=== PATIENT | female | born 1980 | race Two or more races ===

== ENCOUNTER 2023-08-16 08:32 | Outpatient (CLI) | payer OTHER | END 2023-08-16 08:38 | disposition home or self-care (01) | LOC: NUCLEAR 08:32 | DX: C50.611 Malignant neoplasm of axillary tail of right female breast (principal) ==

== ENCOUNTER 2024-09-18 08:00 | Outpatient (CLI) | payer OTHER | END 2024-09-18 08:01 | disposition home or self-care (01) | LOC: NUCLEAR 08:00 | PROVIDERS: ATTEND Internal Medicine Hematology & Oncology | DX: C50.411 Malignant neoplasm of upper-outer quadrant of right female breast (principal) ==

== ENCOUNTER 2024-11-02 07:00 | Day surgery (SDC) | payer OTHER ==
[2024-11-01 10:20] LABS: HEMATOCRIT 35.3 % (36.0-45.00); HEMOGLOBIN 11.5 g/dL (12.0-15.00); MEAN CELL VOLUME 89.8 fL (80.00-100.00); MEAN CORPUSCULAR HEMOGLOBIN 29.4 pg (27.00-32.0); MEAN CORPUSCULAR HGB CONC 32.7 g/dl (32.0-36.0); PLATELET COUNT 181 K/uL (150-450); RED BLOOD COUNT 3.93 M/uL (4.00-6.00)
[2024-11-01 10:40] LABS: INR 1.06; PARTIAL THROMBOPLASTIN TIME 25.9 SECONDS (22.0-34.0); PROTHROMBIN TIME 11.5 SECONDS (9.0-11.5)
[2024-11-01 10:44] LABS: RED CELL DISTRIBUTION WIDTH 18.8 % (11.5-14.5)
[2024-11-01 11:18] LABS: BILIRUBIN TOTAL 0.69 mg/dL (0.3-1.2); CALCIUM 9.1 mg/dL (8.5-10.1); CREATININE SERUM 0.83 mg/dL (0.55-1.02); GFR 75.03; GLOBULINA 3.3 G/DL (2.4-3.5); POTASSIUM 4.22 mEq/L (3.5-5.1); TOTAL PROTEIN 7.3 gm/dL (6.4-8.2)
[2024-11-01 11:44] LABS: PH,URINE 7.5 (5.0-8.0); URINE APPEARANCE Clear; URINE BILIRRUBIN Negative (NEGATIVE); URINE BLOOD Negative; URINE COLOR Orange; URINE GLUCOSE Negative (NEGATIVE); URINE KETONE Trace (NEGATIVE); URINE LEUKOCYTE Trace; URINE NITRATE Negative; URINE PROTEIN Negative (NEGATIVE)
[2024-11-01 11:45] LABS: URINE BACTERIA 1768.6 uL (0.0-1933); URINE EPITHELIAL CELLS 40.3 uL (0.0-38.8); URINE RBC 15.7 uL (0.0-20.8); URINE WBC 16.9 uL (0.0-23.2)
[2024-11-01 12:10] LABS: URINE CAST 0.58 uL (0.0-1.40)
[2024-11-01 13:45] VITALS: BP 100/64
[~2024-11-02] VITALS: Ht 154.9 cm; Wt 47.2 kg
[~2024-11-02 07:00] MED LIST: IBRANCE125 M1; TAMOXIFEN CITRA20 MG PO; ZOLADEX3.6 MG
[2024-11-02] MEDS ORDERED: CLINDAMYCIN PHOSPHATE 150 MG/ML (900mg) IV SCH (14:15)
[2024-11-02] MEDS ORDERED: CEFAZOLIN SODIUM 1,000 MG VIAL IJ SCH (14:15)
[2024-11-02] MEDS ORDERED: POVIDONE-IODINE SCRUB 118 ML BOTT TOP SCH (14:15)
[2024-11-02] MEDS ORDERED: POVIDONE-IODINE 118 ML BOTT TOP SCH (14:15)
[2024-11-02] MEDS ORDERED: VANCOMYCIN HCL 1,000 MG VIAL IR SCH (14:15)
== END 2024-11-02 20:30 | disposition home or self-care (01) ==
LOC: CIR.AMB 07:00
PROVIDERS: ATTEND Surgery
DX: C50.111 Malignant neoplasm of central portion of right female breast (principal); R59.0 Localized enlarged lymph nodes; Z90.11 Acquired absence of right breast and nipple

== ENCOUNTER 2024-11-16 09:41 | Outpatient (CLI) | payer OTHER | END 2024-11-16 09:52 | disposition home or self-care (01) | LOC: SONOGRAMA 09:41 | PROVIDERS: ATTEND Plastic Surgery | DX: C50.911 Malignant neoplasm of unspecified site of right female breast (principal) ==

== ENCOUNTER 2024-12-24 12:43 | Outpatient (CLI) | payer OTHER | END 2024-12-24 12:44 | disposition home or self-care (01) | LOC: NUCLEAR 12:43 | PROVIDERS: ATTEND Internal Medicine Hematology & Oncology | DX: M81.0 Age-related osteoporosis without current pathological fracture (principal) ==

== ENCOUNTER 2025-01-16 08:00 | Outpatient (CLI) | payer OTHER ==
[2025-01-16 09:38] LABS: PH,URINE 7.5 (5.0-8.0); URINE APPEARANCE Clear; URINE BILIRRUBIN Negative (NEGATIVE); URINE BLOOD Negative; URINE COLOR Yellow; URINE GLUCOSE Negative (NEGATIVE); URINE KETONE Negative (NEGATIVE); URINE LEUKOCYTE Negative; URINE NITRATE Negative; URINE PROTEIN Negative (NEGATIVE); URINE UROBILINOGEN 0.2 E.U./dl
[2025-01-16 09:43] LABS: HEMATOCRIT 30.8 % (36.0-45.00); HEMOGLOBIN 10.4 g/dL (12.0-15.00); MEAN CELL VOLUME 78.6 fL (80.00-100.00); MEAN CORPUSCULAR HEMOGLOBIN 26.4 pg (27.00-32.0); MEAN CORPUSCULAR HGB CONC 33.6 g/dl (32.0-36.0); PLATELET COUNT 190 K/uL (150-450); RED BLOOD COUNT 3.92 M/uL (4.00-6.00); RED CELL DISTRIBUTION WIDTH 18.2 % (11.5-14.5)
[2025-01-16 09:46] LABS: URINE EPITHELIAL CELLS 55.5 uL (0.0-38.8); URINE RBC 6.1 uL (0.0-20.8); URINE WBC 8.5 uL (0.0-23.2)
[2025-01-16 09:47] LABS: URINE CAST 0.14 uL (0.0-1.40)
[2025-01-16 10:04] LABS: INR 1.05; PARTIAL THROMBOPLASTIN TIME 24.4 SECONDS (22.0-34.0); PROTHROMBIN TIME 11.4 SECONDS (9.0-11.5)
[2025-01-16 10:13] LABS: CALCIUM 9.1 mg/dL (8.5-10.1); CREATININE SERUM 0.67 mg/dL (0.55-1.02); GFR 95.61; POTASSIUM 4.05 mEq/L (3.5-5.1)
== END 2025-01-16 08:01 | disposition home or self-care (01) ==
LOC: EKG 08:00 → LAB 08:00 → ADM 15:00 → CIR.AMB 01-21 15:00 → EDSTATUS 01-21 15:00
PROVIDERS: ATTEND Plastic Surgery
DX: Z90.11 Acquired absence of right breast and nipple (principal); N65.1 Disproportion of reconstructed breast

== ENCOUNTER 2025-02-15 06:20 | Day surgery (SDC) | payer OTHER ==
[2025-02-12 13:30] LABS: PH,URINE 5.5 (5.0-8.0); URINE APPEARANCE Clear; URINE BILIRRUBIN Negative (NEGATIVE); URINE BLOOD Negative; URINE COLOR Yellow; URINE GLUCOSE Negative (NEGATIVE); URINE KETONE Negative (NEGATIVE); URINE LEUKOCYTE Negative; URINE NITRATE Negative; URINE PROTEIN Negative (NEGATIVE); URINE UROBILINOGEN 0.2 E.U./dl
[2025-02-12 13:33] LABS: URINE EPITHELIAL CELLS 6.1 uL (0.0-38.8); URINE RBC 3.9 uL (0.0-20.8); URINE WBC 7.5 uL (0.0-23.2)
[2025-02-12 13:53] LABS: CALCIUM 9.6 mg/dL (8.5-10.1); CREATININE SERUM 0.75 mg/dL (0.55-1.02); GFR 83.95; POTASSIUM 3.91 mEq/L (3.5-5.1)
[2025-02-12 14:02] LABS: INR 0.99; PARTIAL THROMBOPLASTIN TIME 24.8 SECONDS (22.0-34.0); PROTHROMBIN TIME 10.8 SECONDS (9.0-11.5)
[~2025-02-15] VITALS: Ht 154.9 cm; Wt 48.1 kg
[2025-02-15] MEDS ORDERED: CLINDAMYCIN PHOSPHATE 150 MG/ML (900mg) ONE (08:17)
[2025-02-15] MEDS ORDERED: CHLORHEXIDINE GLUCONATE 120 ML BOTTLE TOP ONE (08:19)
[2025-02-15] MEDS ORDERED: POVIDONE-IODINE 118 ML BOTT TOP ONE ×4 (08:19→09:49)
[2025-02-15] MEDS ORDERED: CEFAZOLIN SODIUM 1,000 MG VIAL ONE (08:20)
[2025-02-15] MEDS ORDERED: GENTAMICIN SULFATE 40 MG/ML VIAL ONE (08:23)
[2025-02-15] MEDS ORDERED: BUPIVACAINE HCL/MPF 0.5% 30ML VIAL ONE (08:27)
[2025-02-15] MEDS ORDERED: POVIDONE-IODINE SCRUB 118 ML BOTT TOP ONE (08:39)
[2025-02-15] MEDS ORDERED: ONDANSETRON HCL 2 MG/ML VIAL IV PRN (10:30)
[2025-02-15] MEDS ORDERED: MORPHINE SULFATE 4 MG/ML VIAL IV PRN (10:30)
[2025-02-15] MEDS ORDERED: MORPHINE SULFATE 4 MG/ML VIAL IV ONE (10:55)
== END 2025-02-15 12:25 | disposition home or self-care (01) ==
LOC: CIR.AMB 06:20
PROVIDERS: ATTEND Plastic Surgery
DX: N65.1 Disproportion of reconstructed breast (principal); Z90.11 Acquired absence of right breast and nipple; N64.89 Other specified disorders of breast

== ENCOUNTER 2025-10-03 07:27 | Outpatient (CLI) | payer OTHER | END 2025-10-03 07:28 | disposition home or self-care (01) | LOC: NUCLEAR 07:27 | PROVIDERS: ATTEND Internal Medicine Hematology & Oncology | DX: C50.811 Malignant neoplasm of overlapping sites of right female breast (principal) ==